=== PATIENT | male | born 2000 | race Two or more races ===

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

== ENCOUNTER 2024-03-19 14:48 | Emergency (ER) | payer MEDICAID ==
[~2024-03-19] VITALS: Ht 188 cm; Wt 100.0 kg
--- NOTE | 2024-03-19 15:01 | ED.PDOC ---
History of Present Illness HPI Comments 23 year old male GEENA presents to the ED with chief complaint of syncope. Patient reports that at work today, he had started to feel nauseous, vomiting and diarrhea, then his vision was going dark and eventually lost consciousness and fell, hitting her head. EMS relays co-workers did not see any seizure-like activity. Patient states he woke up with nausea and vomiting along with associated head pain from hitting his head after the fall. patient states he had experience some diarrhea and mild abdominal discomfort before going to work today, so he took Pepto-Bismol with relief in his discomfort. EMS notes patient's HR was 134, BG 112, and he was given NS via IV. Patient denies any fever, chills, neck pain, abdominal pain, dizziness, or chest pain. Time Seen by MD: 14:55 Primary Care Provider: AMRICRUZ Reviewed Notes: Nurses Notes, Special Client Bus Driver Notes, Medications, Allergies Allergies: Coded Allergies: NO KNOWN ALLERGIES (Unverified , 12/24/18) Information Source: Patient, Emergency Med Personnel Mode of Arrival: EMS Severity: Moderate Timing: Hours Duration: Since onset Prehospital treatment: None Past Medical History PAST MEDICAL HISTORY: Denies Surgical History: Denies all surgeries Family History Family History: Reviewed,noncontributory to illness Social History Smoker: Non-Smoker Alcohol: Denies ETOH Use Drugs: Denies Drug Use Lives In: Home Constitutional: denies: chills, diaphoresis, fatigue, fever, malaise, sweats, weakness, others EENTM: denies: blurred vision, double vision, ear bleeding, ear discharge, ear drainage, ear pain, ear ringing, eye pain, eye redness, hearing loss, mouth pain, mouth swelling, nasal discharge, nose bleeding, nose congestion, nose pain, photophobia, tearing, throat pain, throat swelling, voice changes, others Respiratory: denies: cough, hemoptysis, orthopnea, SOB at rest, shortness of breath, SOB with excertion, stridor, wheezing, others Cardiovascular: reports: syncope; denies: chest pain, dizzy spells, diaphoresis, Dyspnea on exertion, edema, irregular heart beat, left arm pain, lightheadedness, palpitations, PND, others Gastrointestinal: reports: abdominal pain, diarrhea, nausea, vomiting; denies: abdomen distended, blood streaked bowels, constipated, dysphagia, difficulty swallowing, hematemesis, melena, poor appetite, poor fluid intake, rectal bleeding, rectal pain, others Genitourinary: denies: burning, dysuria, flank pain, frequency, hematuria, incontinence, penile discharge, penile sore, pain, testicle pain, testicle swelling, urgency, others Neurological: reports: headache; denies: dizziness, fainting, left sided numbness, left sided weakness, numbness, paresthesia, pre-existing deficit, right sided numbness, right sided weakness, seizure, speech problems, tingling, tremors, weakness, others Musculoskeletal: denies: back pain, gout, joint pain, joint swelling, muscle pain, muscle stiffness, neck pain, others Integumetry: denies: bruises, change in color, change in hair/nails, dryness, laceration, lesions, lumps, rash, wounds, others Allergic/Immunocompromised: denies: Difficulty Healing, Frequent Infections, Hives, Itching, others Hematologic/Lymphatic: denies: anemia, blood clots, easy bleeding, easy bruising, swollen glands, others Endocrine: denies: excessive hunger, excessive sweating, excessive thirst, excessive urination, flushing, intolerance to cold, intolerance to heat, unexplained weight gain, unexplained weight loss, others Psychiatric: denies: anxiety, bipolar disorder, depression, hopeless, panic disorder, schizophrenia, sleepless, suicidal, others All Other Systems: Reviewed and Negative Physical Exam General Appearance: No Apparent Distress, Normal HEENT: Normal ENT Inspection, Pharynx Normal, TMs Normal, NOT DONE (No tongue laceration, Mild left occipital tenderness) Neck: Full Range of Motion, Non-Tender, Normal, Normal Inspection, Other (No C- Spine tenderness) Respiratory: Chest Non-Tender, Lungs Clear, No Accessory Muscle Use, No Respira tory Distress, Normal Breath Sounds Cardiovascular: No Edema, No JVD, No Murmur, No Gallop, Normal Peripheral Pulses, Regular Rate/Rhythm Breast Exam: Deferred Gastrointestinal: No Organomegaly, Non Tender, No Pulsatile Mass, Normal Bowel Sounds, Soft Genitalia: Deferred Pelvic: Deferred Rectal: Deferred Extremities: No calf tenderness, Normal capillary refill, Normal inspection, Normal range of motion, Non-tender, No pedal edema Musculoskeletal : Apperance: Normal Neurologic: Alert, cloth measurer II-XII nml as Tested, No Motor Deficits, Normal Affect, Normal Mood, No Sensory Deficits Cerebellar Function: Normal Reflexes: Normal Skin: Dry, Normal Color, Warm Lymphatic: No Adenopathy Was a procedure done? Was a procedure done?: No Differential Dx Considerations may include: arrhythmias, hypoglycemia, hypotension, anemia, dehydration, electrolyte disorders, vasovagal syncope. ACS X-Ray, Labs, Meds, VS Vital Signs Date Time Temp Pulse Resp B/P (MAP) Pulse Ox O2 Delivery O2 Flow Rate FiO2 03/19/24 15:22 98 Lab Test 03/19/24 15:19 Range/Units White Blood Count 10.9 H 4.4-10.8 10^3/uL Red Blood Count 5.88 4.5-5.90 10^6/uL Hemoglobin 17.6 H 13.5-17.5 g/dL Hematocrit 52.0 41.0-53.0 % Mean Corpuscular Volume 88.4 80.0-100.0 fL Mean Corpuscular Hemoglobin 30.0 28.0-32.0 pg Mean Corpuscular Hemoglobin Concent 34.0 32.0-36.0 g/dL Red Cell Distribution Width 13.2 11.8-14.3 % Platelet Count 230 140-450 10^3/uL Mean Platelet Volume 8.0 6.9-10.8 fL Neutrophils (%) (Auto) 82.9 H 37.0-80.0 % Lymphocytes (%) (Auto) 7.8 L 10.0-50.0 % Monocytes (%) (Auto) 7.2 0.0-12.0 % Eosinophils (%) (Auto) 1.7 0.0-7.0 % Basophils (%) (Auto) 0.4 0.0-2.0 % Neutrophils # (Auto) 9.0 H 1.6-8.6 10 ^3/uL Lymphocytes # (Auto) 0.9 0.4-5.4 10 ^3/uL Monocytes # (Auto) 0.8 0-1.3 10 ^3/uL Eosinophils # (Auto) 0.2 0-0.8 10 ^3/uL Basophils # (Auto) 0 0-0.2 10 ^3/uL Nucleated Red Blood Cells 0.1 % Sodium Level 140 136-145 mmol/L Potassium Level 4.5 3.5-5.1 mmol/L Chloride Level 103 98-107 mmol/L Carbon Dioxide Level 30 20-31 mmol/L Anion Gap 7 5-15 Blood Urea Nitrogen 15 9-23 mg/dL Creatinine 1.29 0.700-1.30 mg/dL Glomerular Filtration Rate Calc 80 >90 mL/min BUN/Creatinine Ratio 11.6 10.0-20.0 Serum Glucose 100 74-106 mg/dL Calcium Level 10.3 8.7-10.4 mg/dL Plasma/Serum Blood Alcohol < 3.0 <10 mg/dL Time of 1ST Reevaluation: 15:55 Reevaluation 1ST: Improved Time of 2ND Reevaluation: 16:56 Reevaluation 2ND: Improved Patient Education/Counseling: Diagnosis, Treatment, Prognosis, Need For Follow Up Family Education/Counseling: No Family Present Additional Information - The following tests were ordered, and results were reviewed by me: CT Head, Chest XR, C-Spine XR, CBC, BMP, Drug Screen, Urine Ethanol, and EKG. - Additional information was gathered from interviewing the following independent Historian: EMT - I reviewed and agreed with the following test results read by other provider: CT Head, Chest XR, C-Spine XR - I discussed treatments and results with medical personnel. this is a healthy young male, without any prior medical history. he was well, but suddenly developed nausea, vomiting, diarrhea and had a syncopal episode. the workup is unremarkable. he did not suffer any acute injuries. we have not captured any arrhythmias. pt likely had a vasovagal episode. he is stable for discharge and follow up with his PCP Departure 1 Departure Time of Disposition: 16:51 Impression: Primary Impression: Vasovagal syncope Additional Impressions: Closed head injury Qualified Codes: S09.90XA - Unspecified injury of head, initial encounter Viral syndrome Disposition: 01 HOME / SELF CARE / HOMELESS Condition: Good e-Prescriptions Loperamide Hcl (Imodium) 2 Mg Cp 2 MG PO BIDPRN PRN for 2 Days, #4 CAP Prov: ELOINA ARRIETA MD 03/19/24 Ondansetron Odt 4MG Tab (ZOFRAN PO) 4 Mg Tb 4 MG PO Q4HP PRN for 2 Days, #10 TAB ODT TAB-DISSOLVE IN MOUTH, THEN SWALLOW Prov: ELOINA ARRIETA MD 03/19/24 Discharged With: Self Critical Care Note Critical Care Time?: Yes (55 min-critical care time only) Critical care comment: due to concerns for pt's condition deteriorating, the care required my highest level of attention and readiness to intervene. i assessed the patient, ordered the appropriate treatments and tests and reassessed his response. i communicated with medical personnel and consultants, i reviewed his medical records, and formulated a treatment plan. cc time does not include any procedures Stability Stability form required: No Heart Score Heart Score: Heart Score Response (Comments) Value History Moderate Suspicious 1 EKG Normal 0 Age <45 0 Risk Factors No known risk factors 0 Troponin N/A 0 Total 1 I personally scribed for ELOINA ARRIETA MD ([email or web address]) on 03/19/24 at 15:01. Electronically submitted by Jaxson Mckeon ([email or web address]). I personally scribed for ELOINA ARRIETA MD ([email or web address]) on 03/19/24 at 15:08. Electronically submitted by Jaxson Mckeon ([email or web address]). ELOINA ARRIETA MD Mar 19, 2024 15:01
[2024-03-19 15:38] LABS: Basophils # (auto) 0 10 ^3/uL (0-0.2); Eosinophils # (auto) 0.2 10 ^3/uL (0-0.8); Monocytes # (auto) 0.8 10 ^3/uL (0-1.3); Red Cell Distribution Width 13.2 % (11.8-14.3)
[2024-03-19 15:40] LABS: Basophils % (auto) 0.4 % (0.0-2.0); Eosinophils % (auto) 1.7 % (0.0-7.0); Hemoglobin 17.6 g/dL (13.5-17.5); Lymphocytes # (auto) 0.9 10 ^3/uL (0.4-5.4); Lymphocytes % (auto) 7.8 % (10.0-50.0); Mean Corpuscular Volume 88.4 fL (80.0-100.0); Monocytes % (auto) 7.2 % (0.0-12.0); Neutrophils % (auto) 82.9 % (37.0-80.0); Nucleated Red Blood Cells % 0.1 %; Platelet Count (auto) 230 10^3/uL (140-450); Red Blood Cells 5.88 10^6/uL (4.5-5.90); White Blood Cell 10.9 10^3/uL (4.4-10.8)
[2024-03-19 15:47] LABS: Chloride 103 mmol/L (98-107); Potassium 4.5 mmol/L (3.5-5.1); Sodium 140 mmol/L (136-145)
[2024-03-19 15:48] LABS: Anion Gap 7 (5-15); Calcium 10.3 mg/dL (8.7-10.4); Carbon Dioxide 30 mmol/L (20-31)
[2024-03-19 15:53] LABS: BUN/Creatinine Ratio 11.6 (10.0-20.0); Blood Urea Nitrogen 15 mg/dL (9-23); Glucose 100 mg/dL (74-106)
[2024-03-19 15:54] LABS: Blood Alcohol < 3.0 mg/dL (<10)
--- NOTE | 2024-03-19 16:30 | DVH ---
CHEST RADIOGRAPH Indication: syncope Technique: Single frontal view of the chest was obtained Comparison: None FINDINGS: Lines and Tubes: None Lungs: No focal consolidation. Pleura: No effusion. No pneumothorax. Cardiomediastinal contours: Unremarkable Bones: No acute osseous abnormality. IMPRESSION: 1. No radiographic evidence of acute cardiopulmonary disease. HS:Y
--- NOTE | 2024-03-19 16:32 | DVH ---
INDICATION: injury COMPARISON: None TECHNIQUE: 2 views of the cervical spine were obtained. FINDINGS: Straightening of the normal cervical lordosis, possibly positional. The predental space is normal. The odontoid is well centered between the lateral masses of C1. The intervertebral disc spaces are well-maintained. No significant facet arthropathy is noted. No acute fracture, vertebral compression deformity or aggressive osseous lesions. The imaged lung apices are unremarkable. IMPRESSION: 1. No acute fracture or dislocation. HS:Y
--- NOTE | 2024-03-19 16:36 | DVH ---
EXAM: CT HEAD WITHOUT CONTRAST INDICATION: head injury TECHNIQUE: CT of the head without intravenous contrast. Radiation Dose Information: CT Dose: CTDI volume is 63.0 mGy. Dose-length product is 1135.71 mGy*cm The dose indicators for CT are the volume Computed Tomography (CT) Dose Index (CTDIvol) and the Dose Length Product (DLP), and are measured in units of mGy and mGy-cm, respectively. These indicators are not patient dose, but values generated from the CT scanner acquisition factors. The report includes radiation exposure data for exposures received during this examination. COMPARISON: None FINDINGS: There is no evidence of acute intracranial hemorrhage, extra-axial collection, mass effect, midline s hift, herniation or hydrocephalus. The ventricles, sulci and cisterns are age appropriate. The dumont-white differentiation is intact. The visualized paranasal sinuses and mastoid air cells are clear. The surrounding soft tissues and osseous structures are unremarkable. IMPRESSION: 1. No CT evidence of acute intracranial abnormality. HS:Y
[2024-03-19 17:08] VITALS: BP 113/45; TEMP 99.3
[2024-03-19 17:09] VITALS: PULSE 107; RESP 20; O2SAT 100
[2024-03-19] MEDS ORDERED: ZOFR4T PO (17:10)
[2024-03-19] MEDS ORDERED: LOPE2CAP16 PO (17:10)
== END 2024-03-19 17:26 | disposition home or self-care (01) ==
LOC: EDBD 14:48 → ER 14:48
DX: S00.80XA Unspecified superficial injury of other part of head, initial encounter (principal); R55 Syncope and collapse; B34.9 Viral infection, unspecified; X58.XXXA Exposure to other specified factors, initial encounter; Y93.89 Activity, other specified; Y92.89 Other specified places as the place of occurrence of the external cause; Y99.8 Other external cause status
CPT/HCPCS: 36415; 70450; 71045; 72040; 80048; 80320; 85025